=== PATIENT | female | born 1970 | race Caucasian/White ===

== ENCOUNTER 2023-06-12 10:43 | Day surgery (SDC) | payer MEDICARE, SELFPAY ==
[2023-06-12] VITALS (9 sets, daily range): BP systolic 114–154; BP diastolic 56–83; PULSE 65–89; RESP 14–18; TEMP 36.4–37.3; O2SAT 97–100; BMI 37.0
[2023-06-12] MEDS: Lactated Ringers 1,000 ML 15 ML IV (11:23)
[2023-06-12] MEDS: Cefazolin 2 GM in 0.9% Normal Saline (100mL Bag) 100 ML IV (13:50)
--- NOTE | 2023-06-12 14:15 | RAD_ITS ---
HISTORY: FX COMPARISON: Ankle radiograph on same day TECHNIQUE: A total of 5 fluoroscopic images were saved without a radiologist present. FINDINGS: Images demonstrate placement of lateral fibular internal fixation plate and screw complex.. Total fluoroscopy time: 14 seconds Cumulative air kerma: 0.35 mGy RAD/Ankle min 3 Views IMPRESSION: Fluoroscopic assistance for lateral fibular internal fixation. Please see operative report for additional information. Electronically Signed: Santosh Mosquera MD at 23:30 EDT ,
--- NOTE | 2023-06-12 14:39 | PCM.OPRPT ---
Report of Operation Date of Procedure: 06/12/23 Pre-Operative Diagnosis: Left distal fibula fracture Post-Operative Diagnosis: Left distal fibula fracture Surgery/Procedure Performed:: Open reduction internal fixation left distal fibula fracture Stress exam under fluoroscopy left ankle Description of Surgical Findings:: stable well reduced fracture. Syndesmosis remained stable on stress exam. No further fixation was recommended. Surgeon: Mahendra Yee oracle erp developer: Russell Schmidt Type of Anesthesia: Spinal Anesthesiologist: Remi Salas Special Medications: Ancef Specimen's removed: None Estimated Blood Loss (mL): 10 Fluids Replaced: 1000 mL crystalloid Description of Procedure: On the date of the procedure patient was seen and evaluated in the preoperative area. I was able to review the patient's history and physical examination as well as examined the patient preoperatively. We did discuss risk and benefits of the procedure which include but not limited to blood loss, DVTs, PEs, nervous damage complex, the risk of anesthesia include loss of life, nonunion, malunion and hardware failure. Patient demonstrated understanding wish to proceed. Patient's left leg was marked in the preoperative area. Patient was brought back to the operating room. Spinal anesthesia was administered. Patient was placed in supine position. Will position his left hip. Left leg was elevated for exposure and radiographic imaging. Once patient was adequately positioned tourniquet was on the left thigh left lower extremities then prepped in a sterile fashion while surgeon scrubbed. Upon entering the room the left lower extremities draped in a sterile orthopedic fashion timeout was called and agreed with site, side, procedure to be performed, patient's identity and antibiotics given. Incision was marked out over the lateral ankle and fibula after palpating the bony prominences. Esmarch bandage used to exsanguinate the extremity and tourniquet was placed at the 250 mmHg density within The skin but dissection was taken down to the fracture. Once we identified the fracture hematoma carefully debrided and irrigated out the wound. Point reduction clamps were used to reduce the fracture. After the fracture was reduced with a pointed reduction clamps live x-rays used to verify fracture reduction. A 3.5 mm lag screw by technique was then placed anterior to posterior to reduce the fracture. Clamp was removed and fracture reduction and compression was verified. Once this was done live x-ray was brought into the field checked fracture reduction and screw placement in AP and lateral planes. While he had the live x-ray we also verify plate placement and length of the plate. A 7 hole one third tubular plate was selected. Plate placement was verified in AP and lateral planes and a proximal screw was placed once again verifying the placement of the plate. Once we are satisfied with this 3 distal screws and 2 proximal screws were placed. 2 of the distal screws were cancellous screws while the remaining screws were cortical. Once this was completed live x-ray was used to verify plate placement and fracture reduction were maintained. We then internally rotated the ankle obtaining a mortise view. Once With a mortise view we then applied external stress and again obtain another x-ray showing no significant change in the syndesmosis or medial joint space widening. Based on this we elected to not proceed with any further surgical intervention/no syndesmosis fixation was needed. The wound was surjit irrigated out with normal saline. Fascia was closed with 0 Vicryl. Skin was closed with 2-0 Vicryl. Final closure was done with nylon's. Xeroform dressing was placed. Sterile dressing was placed. A well-padded posterior splint was placed. Patient was awakened anesthesia and transferred to PACU for recovery. Postop plan: Patient be placed on aspirin 81 mg p.o. twice daily for DVT prophylaxis. Patient be nonweightbearing for total of 6 weeks. Splint be removed at her 2-week postoperative visit with sutures and patient begin range of motion exercises and be placed in a boot. My physician kindergarten assistant was vital throughout this procedure and his vital helping position the patient. His vital helping maintain and obtain the reduction. He was vital in helping protect soft tissues and neurovascular structures during the procedure finally was vital and closure and splinting under my direct supervision. Grafts/Implants Used: [place] 7 hole one third tubular plate Complications No intraoperative complications were encountered Admit VTE Documentation VTE Present on Admission: No VTE Pharm Prophylaxis ordered?: Yes
[2023-06-12] MEDS: Ketorolac 30 MG/ML Syringe IV (16:00)
--- NOTE | 2023-06-12 16:38 | RAD_ITS ---
INDICATION: FRX EXAMINATION/TECHNIQUE: X-RAY - LEFT XR Ankle 3 VIEWS COMPARISON: FINDINGS: SOFT TISSUES: No soft tissue swelling or gas. No radiopaque foreign body. BONES/JOINTS: No acute fracture or subluxation.. Status post ORIF of the fibula. Preservation of the joint space.. No sclerotic or destructive changes observed. RAD/Ankle min 3 Views IMPRESSION: No acute bony. Electronically Signed: Manjinder Corbett DO at 17:00 EDT ,
== END 2023-06-12 20:24 | disposition home or self-care (01) ==
LOC: SDC 10:55 → AC 10:57
PROVIDERS: PCP Physician Assistant; Referring Provider Physician Assistant; Visit Provider Specialist
PROC: (CPT 27792; principal; 2023-06-12 13:10)
DX: S82.402A Unspecified fracture of shaft of left fibula, initial encounter for closed fracture (principal); J44.9 Chronic obstructive pulmonary disease, unspecified; F17.210 Nicotine dependence, cigarettes, uncomplicated; E66.9 Obesity, unspecified; I10 Essential (primary) hypertension; Z79.82 Long term (current) use of aspirin; Z79.899 Other long term (current) drug therapy; X58.XXXA Exposure to other specified factors, initial encounter; Z86.16 Personal history of COVID-19; Z68.38 Body mass index [BMI] 38.0-38.9, adult
CPT/HCPCS: 27792; 64450; 01480; 73610; 76000; C1713; J7120; J2405